=== PATIENT | female | born 1935 | race Caucasian/White ===

== ENCOUNTER 2016-10-19 12:02 | Emergency (ER) | payer MEDICARE, OTHER ==
[2016-10-19 12:59] VITALS: TEMP 97.1
--- NOTE | 2016-10-19 13:30 | RAD ---
EXAM DESCRIPTION: Chest,2 Views CLINICAL HISTORY: cough for 5 days COMPARISON: None FINDINGS: Two-view chest x-ray shows cardiomediastinal silhouette and pulmonary vasculature to be within normal limits. The lungs are hyperinflated without acute infiltrate or consolidation. Chronic appearing increased interstitial markings are noted. Moderate vascular calcifications of a tortuous thoracic aorta are seen. Costophrenic angles are sharp. Moderate disc degenerative changes of the spine are noted. IMPRESSION: No radiographic evidence of acute cardiopulmonary disease in this emphysematous, senescent chest. Electronically signed by: Darien Mclean MD 10/19/2016 1:30 PM EQUIPMENT ENGINEER
--- NOTE | 2016-10-19 13:43 | ED.PDOC ---
History of Present Illness - General Chief Complaint: Respiratory Problem Stated Complaint: Cough chest congestion and high blood sugar Time Seen by Provider: 10/19/16 13:42 Source: patient Exam Limitations: no limitations - History of Present Illness Timing/Duration: other - 7 days Severity: moderate Worsening Factors: nothing Associated Symptoms: cough Allergies/Adverse Reactions: Allergies Meperidine [From Demerol HCl] Allergy (Verified 10/19/16 12:59) Review of Systems - Review of Systems Constitutional: States: no symptoms reported EENTM: States: no symptoms reported Respiratory: States: see HPI, cough Cardiology: States: no symptoms reported Gastrointestinal/Abdominal: States: no symptoms reported Genitourinary: States: no symptoms reported Musculoskeletal: States: no symptoms reported Skin: States: no symptoms reported Neurological: States: no symptoms reported Endocrine: States: no symptoms reported Hematologic/Lymphatic: States: no symptoms reported Past Medical History (General) - Patient Medical History Hx Seizures: No Hx Stroke: No Hx Dementia: No Hx Asthma: No Hx of COPD: No Hx Cardiac Disorders: No Hx Congestive Heart Failure: No Hx Pacemaker: No Hx Hypertension: Yes Hx Thyroid Disease: Yes Hx Diabetes: Yes - Tyoe 1 Hx Gastroesophageal Reflux: No Hx Renal Disease: No Hx Cancer: No Hx of HIV: No Hx Hepatitis C: No Hx MRSA: No Surgical History: Hysterectomy - Vaccination History Hx Influenza Vaccination: Yes Hx Pneumococcal Vaccination: No - Social History Hx Tobacco Use: No Hx Alcohol Use: No Hx Substance Use: No Hx Substance Use Treatment: No Hx Depression: No - Triage Comment ED Triage Comment: Pt states she has had allergies and sinus problems for the past 5 days, with runny nose. The has now developed a cough that has settled in her chest. Also damendezther took her FSBS in waiting room and it reads [id number] Family Medical History - Family History Mother Family History: Unknown Living Status: Non Contributory this Encounter: Non Contributory for this Encounter - adopted Physical Exam - Physical Exam General Appearance: Alert, No apparent distress Eye Exam: bilateral normal Ears, Nose, Throat: hearing grossly normal, normal ENT inspection, normal pharynx Neck: non-tender, full range of motion, supple Respiratory: chest non-tender, lungs clear, normal breath sounds, no respiratory distress Cardiovascular/Chest: normal peripheral pulses, regular rate, rhythm, no edema, no gallop, no JVD Peripheral Pulses: radial,right: 2+, radial,left: 2+ Gastrointestinal/Abdominal: normal bowel sounds, non tender, soft, no organomegaly Back Exam: normal inspection, no CVA tenderness, no vertebral tenderness Extremity: normal range of motion, non-tender, normal inspection Neurologic: alert, normal mood/affect, oriented x 3 Skin Exam: normal color, warm/dry Progress - Results/Orders Results/Orders: Laboratory Results WBC 4.1 K/mm3 (4.8-10.8) L 10/19/16 13:00 RBC 3.74 M/mm3 (4.20-5.40) L 10/19/16 13:00 Hgb 11.7 gm/dL (12.0-16.0) L 10/19/16 13:00 Hct 35.7 % (36.0-47.0) L 10/19/16 13:00 MCV 95.3 fl (81.0-99.0) 10/19/16 13:00 MCH 31.2 pg (27.0-31.0) H 10/19/16 13:00 MCHC 32.9 g/dL (33.0-37.0) L 10/19/16 13:00 RDW 12.9 % (11.5-14.5) 10/19/16 13:00 Plt Count 220 K/mm3 (130-400) 10/19/16 13:00 MPV 7.7 fl (7.40-10.4) 10/19/16 13:00 Absolute Neuts (auto) 2.80 K/uL (1.8-6.8) 10/19/16 13:00 Absolute Lymphs (auto) 0.60 K/uL (1.0-3.4) L 10/19/16 13:00 Absolute Monos (auto) 0.40 K/uL (0.2-0.8) 10/19/16 13:00 Absolute Eos (auto) 0.20 K/uL (0.0-0.4) 10/19/16 13:00 Absolute Basos (auto) 0.10 K/uL (0.0-0.1) 10/19/16 13:00 Neutrophils % 67.8 % (42.0-78.0) 10/19/16 13:00 Lymphocytes % 14.7 % (20.0-50.0) L 10/19/16 13:00 Monocytes % 10.6 % (2.0-9.0) H 10/19/16 13:00 Eosinophils % 5.6 % (1.0-5.0) H 10/19/16 13:00 Basophils % 1.3 % (0.0-2.0) 10/19/16 13:00 Sodium 131 mmol/L (135-145) L 10/19/16 13:00 Potassium 4.7 mmol/L (3.6-5.0) 10/19/16 13:00 Chloride 94 mmol/L (101-111) L 10/19/16 13:00 Carbon Dioxide 28 mmol/L (21-31) 10/19/16 13:00 Anion Gap 13.7 (12-18) 10/19/16 13:00 BUN 24 mg/dL (7-18) H 10/19/16 13:00 Creatinine 0.99 mg/dL (0.6-1.3) 10/19/16 13:00 BUN/Creatinine Ratio 24.2 (10-20) H 10/19/16 13:00 POC Glucose > 400 mg/dL (70-105) H* 10/19/16 13:00 Random Glucose 493 mg/dL (70-105) H* 10/19/16 13:13 Serum Osmolality 288.6 mOsm/L (275-295) 10/19/16 13:00 Calcium 9.1 mg/dL (8.4-10.2) 10/19/16 13:00 Total Bilirubin 0.5 mg/dL (0.2-1.0) 10/19/16 13:00 AST 18 IU/L (10-42) 10/19/16 13:00 ALT 11 IU/L (10-60) 10/19/16 13:00 Alkaline Phosphatase 95 IU/L (42-121) 10/19/16 13:00 Serum Total Protein 7.8 gm/dL (6.4-8.2) 10/19/16 13:00 Albumin 3.9 g/dl (3.2-5.5) 10/19/16 13:00 Globulin 3.9 gm/dL (2.3-3.5) H 10/19/16 13:00 Albumin/Globulin Ratio 1.0 (1.1-1.9) L 10/19/16 13:00 Departure - Departure Disposition: Discharge to Home or Self Care Departure Forms: ED Discharge - Pt. Copy, Patient Portal Self Enrollment
[2016-10-19] MEDS ORDERED: INSULIN, REG.(HUMAN) 100 U/ML VIAL SUBCU ONE (14:26)
[2016-10-19 16:31] VITALS: BP 115/68; O2SAT 92
== END 2016-10-19 16:15 | disposition home or self-care (01) ==
LOC: ER 12:02
DX: J06.9 Acute upper respiratory infection, unspecified (principal); E10.65 Type 1 diabetes mellitus with hyperglycemia; I10 Essential (primary) hypertension; E07.9 Disorder of thyroid, unspecified; Z88.8 Allergy status to other drugs, medicaments and biological substances

== ENCOUNTER 2018-02-20 09:00 | Emergency (ER) | payer OTHER ==
[2018-02-20 09:12] VITALS: BP 112/59; TEMP 99.5; O2SAT 95
[2018-02-20] MEDS ORDERED: CLINDAMYCIN HCL CAP 150 MG CAP PO ONE (09:32)
[2018-02-20] MEDS ORDERED: ONDANSETRON ODT 8 MG TAB SL ONE (09:32)
[2018-02-20] MEDS ORDERED: cefTRIAXone SODIUM 1 GM VIAL IM ONE (09:32)
--- NOTE | 2018-02-20 09:35 | ED.PDOC ---
History of Present Illness - General Chief Complaint: Dental/Mouth Stated Complaint: right jaw pain Time Seen by Provider: 02/20/18 09:24 Source: patient Exam Limitations: no limitations - History of Present Illness Initial Comments: the patient is a 82-year-old female presenting to the emergency room secondary to what appears to be a dental infection and warm her upper right molars. She does have some swelling on that side of the face but no obvious abscess formation at this time. She has apparently thrown up twice. It does hurt. She is not having any fevers. No evidence of any sepsis. She is alert oriented and interactive. Timing/Duration: 24 hours Severity: moderate Improving Factors: nothing Worsening Factors: eating Associated Symptoms: denies symptoms Allergies/Adverse Reactions: Allergies Meperidine [From Demerol HCl] Allergy (Verified 10/19/16 12:59) Home Medications: Ambulatory Orders Benzonatate Perles [Tessalon Perles] 200 mg PO BID #30 cap 10/19/16 Chlorpheniramine Maleate [Chlor-Trimeton Allergy] 12 mg PO BID #30 tab 10/19/16 Abcpsbxusnhri-Rgah-Zpthvzemgg [Fioricet] 1 ea PO Q8H PRN #21 tab 02/20/18 Clindamycin HCl 300 mg PO Q8H #30 cap 02/20/18 Ondansetron [Zofran Odt] 4 mg PO Q4H PRN #10 tab 02/20/18 Review of Systems - Review of Systems Constitutional: States: no symptoms reported EENTM: States: see HPI Respiratory: States: no symptoms reported Cardiology: States: no symptoms reported Gastrointestinal/Abdominal: States: nausea, vomiting Genitourinary: States: no symptoms reported Musculoskeletal: States: no symptoms reported Skin: States: no symptoms reported Neurological: States: no symptoms reported Endocrine: States: no symptoms reported All other Systems: No Change from Baseline Past Medical History (General) - Patient Medical History Hx Seizures: No Hx Stroke: No Hx Dementia: No Hx Asthma: No Hx of COPD: No Hx Cardiac Disorders: No Hx Congestive Heart Failure: No Hx Pacemaker: No Hx Hypertension: Yes Hx Thyroid Disease: Yes Hx Diabetes: Yes - Tyoe 1 Hx Gastroesophageal Reflux: No Hx Renal Disease: No Hx Cancer: No Hx of HIV: No Hx Hepatitis C: No Hx MRSA: No - Vaccination History Hx Influenza Vaccination: Yes Hx Pneumococcal Vaccination: No - Social History Hx Tobacco Use: No Hx Alcohol Use: No Hx Substance Use: No Hx Substance Use Treatment: No Hx Depression: No Family Medical History - Family History Mother Family History: Unknown Living Status: Physical Exam - Physical Exam General Appearance: Alert, Comfortable, No apparent distress Eye Exam: bilateral normal Ears, Nose, Throat: hearing grossly normal, normal pharynx Neck: full range of motion, supple Respiratory: lungs clear, normal breath sounds, no respiratory distress, no accessory muscle use Cardiovascular/Chest: normal peripheral pulses, regular rate, rhythm, no edema Peripheral Pulses: radial,right: 2+, radial,left: 2+, dorsalis pedis,right: 2+, dorsalis pedis,left: 2+ Gastrointestinal/Abdominal: non tender, soft Rectal Exam: deferred Extremity: no pedal edema, no calf tenderness, normal capillary refill 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 Comments: Vital Signs - 24 hr 02/20/18 09:01 Temperature 99.5 F Pulse Rate [ 105 H Left Brachial] Respiratory 20 Rate Blood Pressure 112/59 [Left Arm] O2 Sat by Pulse 95 Oximetry Progress - Progress Progress: 02/20/18 09:36 the patient is a 82-year-old female presenting with a right upper dental infection giving some swelling to that side of the face. The patient needs to keep herself well hydrated. She needs to take her clindamycin with food. She'll be written for some Zofran for any nausea to take as needed. She' ll also be written for some Fioricet to take as needed. She did receive 1 dose of Rocephin here. If the problem worsens obviously over the next 48 hours rather than improves, then she may or more aggressive therapy however there is no obvious abscess formed at this time and no evidence of sepsis. she does need to monitor her blood sugars closely. She does need to follow back up with her primary care doctor in a couple of days for reevaluation just to be safe given her brittle medical status and general. ER warnings were given. Departure - Departure Clinical Impression: Infected dental caries Disposition: Discharge to Home or Self Care Condition: Good Departure Forms: ED Discharge - Pt. Copy, Patient Portal Self Enrollment Diet: diabetic diet Activity: increase activity as tolerated Referrals: KRISTEN ST [Primary Care Provider] - 1-2 Days Prescriptions: Lkjlmqacmqzjq-Poip-Ssxxgmiqor [Fioricet] 1 ea PO Q8H PRN #21 tab PRN Reason: Pain Clindamycin HCl 300 mg PO Q8H #30 cap Ondansetron [Zofran Odt] 4 mg PO Q4H PRN #10 tab PRN Reason: Vomiting Home Medications: Ambulatory Orders Benzonatate Perles [Tessalon Perles] 200 mg PO BID #30 cap 10/19/16 Chlorpheniramine Maleate [Chlor-Trimeton Allergy] 12 mg PO BID #30 tab 10/19/16 Ilfzgkazdebjk-Dztz-Mixgtfarbt [Fioricet] 1 ea PO Q8H PRN #21 tab 02/20/18 Clindamycin HCl 300 mg PO Q8H #30 cap 02/20/18 Ondansetron [Zofran Odt] 4 mg PO Q4H PRN #10 tab 02/20/18 Additional Instructions: the patient is a 82-year-old female presenting with a right upper dental infection giving some swelling to that side of the face. The patient needs to keep herself well hydrated. She needs to take her clindamycin with food. She'll be written for some Zofran for any nausea to take as needed. She' ll also be written for some Fioricet to take as needed. She did receive 1 dose of Rocephin here. If the problem worsens obviously over the next 48 hours rather than improves, then she may or more aggressive therapy however there is no obvious abscess formed at this time and no evidence of sepsis. she does need to monitor her blood sugars closely. She does need to follow back up with her primary care doctor in a couple of days for reevaluation just to be safe given her brittle medical status and general. ER warnings were given.
== END 2018-02-20 10:20 | disposition home or self-care (01) ==
LOC: ER 09:00
DX: K02.9 Dental caries, unspecified (principal)

== ENCOUNTER 2018-02-22 14:03 | Emergency (ER) | payer OTHER ==
[2018-02-22] MEDS ORDERED: INSULIN, REG.(HUMAN) 100 U/ML VIAL IV ONE (14:10)
[2018-02-22] MEDS ORDERED: ALUMINUM & MAGNESIUM HYDROXIDE 30 ML UD PO ONE (14:10)
--- NOTE | 2018-02-22 14:39 | RAD ---
EXAM DESCRIPTION: Abdomen Series CLINICAL HISTORY: 82 years Female, n/v COMPARISON: None. FINDINGS: Chest x-ray shows normal-sized heart. Tortuous aorta is seen. Normal pulmonary vascularity. No consolidating infiltrate, mass or pleural effusion. Upright view the abdomen shows no abnormal air-fluid levels. No free air under the diaphragm. Supine view the abdomen shows moderate amount of fecal material in the rectal region. Otherwise the colon appears essentially clear. Phleboliths are seen in the left more than right pelvis. Degenerative dextroscoliotic curvature of the L-spine is seen. Pelvis appears intact. IMPRESSION: No acute process. Electronically signed by: Mariano Joy MD 02/22/2018 2:37 PM CDT
[2018-02-22] MEDS ORDERED: PROMETHAZINE HCL INJ 25 MG in SODIUM CHLORIDE 0.9% 50ML 50 ML IVPB ONE (14:42)
[2018-02-22] MEDS ORDERED: SODIUM CHLORIDE 0.9% 1000ML 1,000 ML IVS ONE (14:43)
[2018-02-22 14:44] VITALS: TEMP 98
[2018-02-22] MEDS ORDERED: ONDANSETRON INJ 4 MG/2 ML VIAL IV ONE (14:44)
[2018-02-22] MEDS ORDERED: PROMETHAZINE HCL INJ 25 MG/ML VIAL ONE (14:49)
[2018-02-22] MEDS ORDERED: SODIUM CHLORIDE 0.9% 50ML 50 ML ONE (14:49)
[2018-02-22 15:18] VITALS: O2SAT 98
[2018-02-22] MEDS ORDERED: INSULIN, REG.(HUMAN) 250 UNITS in SODIUM CHL 0.9% 250ML (AVIVA) 247.5 ML IVPB SCH ×2 (15:32)
[2018-02-22] MEDS ORDERED: cefTRIAXone SODIUM 1 GM in SODIUM CHL 0.9% 50ML MIN-BAG+ 50 ML IVPB ONE (15:35)
[2018-02-22] MEDS ORDERED: SODIUM CHL 0.9% 250ML (AVIVA) 0 ML IVPB ONE (15:40)
[2018-02-22] MEDS ORDERED: INSULIN, REG.(HUMAN) 100 U/ML VIAL ONE (15:40)
[2018-02-22] MEDS ORDERED: cefTRIAXone SODIUM 1 GM VIAL ONE (15:40)
[2018-02-22] MEDS ORDERED: SODIUM CHL 0.9% 50ML MIN-BAG+ 50 ML IVPB ONE (15:40)
--- NOTE | 2018-02-22 16:08 | ED.PDOC ---
History of Present Illness - General Chief Complaint: GI Problem Stated Complaint: vomiting x2 days Time Seen by Provider: 02/22/18 14:07 Source: patient, family Exam Limitations: no limitations - History of Present Illness Initial Comments: the patient is an 82-year-old female presenting to the emergency room with her daughter secondary to nausea and vomiting for the last 2448 hrs. The patient was seen here before that for a dental root infection and was placed on clindamycin. The next day after starting the clindamycin she started throwing up. Since she was throwing up she figures she apparently did not need to take any of her insulin. She did not check her blood sugars. She has continued to throw up this morning and was getting weaker so she should appear. The emergency room. She is alert and oriented. The facial swelling to the right side of the face that was seen earlier in the week has essentially dissipated. Blood sugar check with EMS was too high to be determined. Blood sugar here was 640. Again the patient is alert and oriented. She is not short of breath. No chest pain. No evidence of any cardiac instability at this time. Her and her daughter do not know of any chronic lung or heart problems. Timing/Duration: other - 48 hours Severity: severe Improving Factors: nothing Worsening Factors: nothing Associated Symptoms: loss of appetite, malaise, nausea/vomiting, weakness Allergies/Adverse Reactions: Allergies Meperidine [From Demerol HCl] Allergy (Verified 10/19/16 12:59) Home Medications: Ambulatory Orders Benzonatate Perles [Tessalon Perles] 200 mg PO BID #30 cap 10/19/16 Chlorpheniramine Maleate [Chlor-Trimeton Allergy] 12 mg PO BID #30 tab 10/19/16 Lexdzocnizror-Syij-Dsdnhtiwcw [Fioricet] 1 ea PO Q8H PRN #21 tab 02/20/18 Clindamycin HCl 300 mg PO Q8H #30 cap 02/20/18 Ondansetron [Zofran Odt] 4 mg PO Q4H PRN #10 tab 02/20/18 Review of Systems - Review of Systems Constitutional: States: malaise, weakness EENTM: States: see HPI Respiratory: States: no symptoms reported Cardiology: States: no symptoms reported Gastrointestinal/Abdominal: States: abdominal pain - abdominal cramping, nausea , vomiting Genitourinary: States: no symptoms reported Musculoskeletal: States: other - generalized body aches Skin: States: no symptoms reported Neurological: States: no symptoms reported Endocrine: States: no symptoms reported, increased thirst All other Systems: No Change from Baseline Past Medical History (General) - Patient Medical History Hx Seizures: No Hx Stroke: No Hx Dementia: No Hx Asthma: No Hx of COPD: No Hx Cardiac Disorders: No Hx Congestive Heart Failure: No Hx Pacemaker: No Hx Hypertension: Yes Hx Thyroid Disease: Yes Hx Diabetes: Yes Hx Gastroesophageal Reflux: No Hx Renal Disease: No Hx Cancer: No Hx of HIV: No Hx Hepatitis C: No Hx MRSA: No - Vaccination History Hx Influenza Vaccination: Yes Hx Pneumococcal Vaccination: No - Social History Hx Tobacco Use: No Hx Alcohol Use: No Hx Substance Use: No Hx Substance Use Treatment: No Hx Depression: No Family Medical History - Family History Mother Family History: Unknown Living Status: Physical Exam - Physical Exam General Appearance: Alert, Other - vomiting Eye Exam: bilateral normal Ears, Nose, Throat: hearing grossly normal, other - there is still some mild swelling to the right upper gum. Still very mild persistent facial swelling to the right. Significantly improved from earlier in the week. 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 PH was 7.11. As I am writing this the patient has received at least a liter and a half of IV fluids. She has received at least 8 units of IV insulin and has been started on 0.1 units per kilogram per hour of IV insulin. Potassium is moderately elevated upon initiation but will need to be followed. Anion gap is in the mid 30s when sodium is corrected for glucose. The patient is alert and oriented and appears to be hemodynamically stable. I do anticipate the patient will take around 48 hours to correct and stabilize. her noncompliance will need to be addressed. She did receive a dose of IV Rocephin here as she is obviously not able to hold down the oral clindamycin at this time. She did also receive a dose of Zofran and Phenergan for the nausea and vomiting which appears to be working. She does have a history of hypothyroidism and this will also need to be checked in the near future. A blood culture has been performed here. Critical care time spent in management of DKA and mixed metabolic acidosis is 40 minutes including time for discussion with the family on the patient's plan of care as well as with the receiving facility. Transfer for higher level of care. - Results/Orders Results/Orders: blood cultures being done. EKG shows sinus tachycardia with right bundle branch block. Rate is [address] definitive acute ST segment changes concerning for ischemia. Acute abdominal series films show any definitive acute pathology. No obstruction. No free air. Laboratory Tests 02/22/18 02/22/18 02/22/18 13:51 13:51 15:05 WBC 11.2 H RBC 3.37 L Hgb 10.6 L Hct 33.0 L MCV 98.0 MCH 31.4 H MCHC 32.1 L RDW 12.8 Plt Count 348 MPV 8.4 Absolute Neuts (auto) 10.40 H Absolute Lymphs (auto) 0.30 L Absolute Monos (auto) 0.40 Absolute Eos (auto) 0.00 Absolute Basos (auto) 0.10 Neutrophils % 93.1 H Lymphocytes % 3.0 L Monocytes % 3.2 Eosinophils % 0.0 L Basophils % 0.7 pCO2 30 L pO2 106 HCO3 9.1 ABG pH 7.110 L* ABG O2 Saturation 97.3 ABG Base Excess -19.0 ABG Deoxyhemoglobin 2.7 Oxyhemoglobin % 94.6 Carboxyhemoglobin % 0.5 Methemoglobin % Sat 2.2 H Calc Total Hemoglobin 8.9 L Sodium 134 L Potassium 5.4 H Chloride 94 L Carbon Dioxide 14 L* Anion Gap 31.4 H BUN 45 H Creatinine 1.45 H BUN/Creatinine Ratio 31.0 H Random Glucose 641 H* Serum Osmolality 309.9 H Calcium 10.1 Magnesium 2.5 Total Bilirubin 1.8 H AST 16 ALT 15 Alkaline Phosphatase 111 Creatine Kinase 25 L CK-MB (CK-2) 1.3 CK-MB (CK-2) % 5.20 H Troponin I < 0.02 Serum Total Protein 8.4 H Albumin 4.1 Globulin 4.3 H Albumin/Globulin Ratio 1.0 L Amylase 39 Lipase 15 L Departure - Departure Clinical Impression: Metabolic acidosis DKA (diabetic ketoacidoses) Qualifiers: Diabetes mellitus type: other specified (including [place]) Diabetes mellitus complication detail: without coma Qualified Code(s): E13.10 - Other specified diabetes mellitus with ketoacidosis without coma Vomiting Qualifiers: Vomiting type: unspecified Vomiting Intractability: non-intractable Nausea presence: with nausea Qualified Code(s): R11.2 - Nausea with vomiting, unspecified Disposition: Transfer to Hospital Referrals: [facility] ST [Primary Care Provider] - 1-2 Weeks Home Medications: Ambulatory Orders Benzonatate Perles [Tessalon Perles] 200 mg PO BID #30 cap 10/19/16 Chlorpheniramine Maleate [Chlor-Trimeton Allergy] 12 mg PO BID #30 tab 10/19/16 Vtugkcmzompcf-Lsaz-Crsrzmofnr [Fioricet] 1 ea PO Q8H PRN #21 tab 02/20/18 Clindamycin HCl 300 mg PO Q8H #30 cap 02/20/18 Ondansetron [Zofran Odt] 4 mg PO Q4H PRN #10 tab 02/20/18 Transfer to Outside Facility - Transfer Information Accepting Provider:: dr leonardo/dr maloney Accepting Facility: [facility] Reason for Transfer: ICU
[2018-02-22] MEDS ORDERED: SODIUM CHL 0.9% 250ML (AVIVA) 250 ML IVPB ONE (16:25)
[2018-02-22 17:41] VITALS: BP 124/53
== END 2018-02-22 16:20 | disposition short-term general hospital (02) ==
LOC: ER 14:03
DX: E11.10 Type 2 diabetes mellitus with ketoacidosis without coma (principal); I10 Essential (primary) hypertension; E07.9 Disorder of thyroid, unspecified; R00.0 Tachycardia, unspecified; I45.10 Unspecified right bundle-branch block

== ENCOUNTER → 2018-04-14 | Outpatient (CLI) | payer OTHER ==
--- NOTE | 2018-04-14 11:10 | RAD ---
EXAM DESCRIPTION: Shoulder,Left 2 or More Views CLINICAL HISTORY: 83 years Female, FX OF HUMERUS COMPARISON: Radiographs dated 04/05/2018. FINDINGS: The visualized bones are well-mineralized. Old fracture of the proximal left humerus is again identified. The soft tissues appear grossly unremarkable. IMPRESSION: Stable appearance of the proximal fracture of the left humerus compared to 04/05/2018. Electronically signed by: Laura Fan MD 04/14/2018 11:09 AM CDT
== END ==
LOC: RAD 09:28
PROVIDERS: ATTEND Orthopaedic Surgery
DX: S42.202D Unspecified fracture of upper end of left humerus, subsequent encounter for fracture with routine healing (principal)

== ENCOUNTER → 2018-05-15 | Outpatient (CLI) | payer OTHER ==
--- NOTE | 2018-05-15 09:39 | RAD ---
EXAM DESCRIPTION: Shoulder,Left 2 or More Views CLINICAL HISTORY: 83 years Female, FRACTURE OF LEFT HUMERUS COMPARISON: April 14, 2018 FINDINGS: Again seen is an impacted left humeral neck fracture with slight displacement. There is some callus formation at the fracture site which appears increased from the prior study, the fracture remains at least partially nonunited. No acute fracture or malalignment. The left AC joint is unremarkable. IMPRESSION: Impacted left humeral neck fracture, probably partially united. Slight interval increase in amount of callus formation from November 12, 2017. Electronically signed by: Evan Zurita MD 05/15/2018 9:37 AM CDT
== END ==
LOC: RAD 08:15
PROVIDERS: ATTEND Orthopaedic Surgery
DX: S42.202A Unspecified fracture of upper end of left humerus, initial encounter for closed fracture (principal)

== ENCOUNTER 2018-06-10 12:32 | Inpatient (IN) | payer OTHER ==
--- NOTE | 2018-06-10 12:45 | ED.PDOC ---
History of Present Illness - General Chief Complaint: Diabetic Complaint Time Seen by Provider: 06/10/18 12:39 Source: patient Exam Limitations: no limitations - History of Present Illness Initial Comments: ONSET OF N/V THIS AM. WAS BROUGHT IN FOR EVALUATION OF POSSIBLE DIABETIC COMPLICATIONS. BS THIS AM 499 Timing/Duration: other - SINCE THIS AM Severity: moderate Improving Factors: nothing Worsening Factors: nothing Associated Symptoms: denies symptoms Allergies/Adverse Reactions: Allergies Meperidine [From Demerol HCl] Allergy (Verified 10/19/16 12:59) Home Medications: Ambulatory Orders Levothyroxine Sodium [Synthroid] 100 mcg PO DAILY 06/10/18 Review of Systems - Review of Systems Constitutional: Denies: chills, fever EENTM: States: no symptoms reported Respiratory: Denies: cough, short of breath, wheezing Cardiology: Denies: chest pain, palpitations Gastrointestinal/Abdominal: States: nausea, vomiting. Denies: abdominal pain, diarrhea Genitourinary: Denies: dysuria, frequency, hematuria Musculoskeletal: States: no symptoms reported Skin: States: no symptoms reported Neurological: States: no symptoms reported Endocrine: Denies: excessive sweating, intolerance to cold, intolerance to heat , increased thirst, increased urine Hematologic/Lymphatic: States: no symptoms reported Past Medical History (General) - Patient Medical History Hx Seizures: No Hx Stroke: No Hx Dementia: No Hx Asthma: No Hx of COPD: No Hx Cardiac Disorders: No Hx Congestive Heart Failure: No Hx Pacemaker: No Hx Hypertension: No Hx Thyroid Disease: Yes Hx Diabetes: Yes Hx Gastroesophageal Reflux: No Hx Renal Disease: No Hx Cancer: No Hx of HIV: No Hx Hepatitis C: No Hx MRSA: No - Vaccination History Hx Tetanus, Diphtheria Vaccination: No Hx Influenza Vaccination: No Hx Pneumococcal Vaccination: No - Social History Hx Tobacco Use: No Hx Chewing Tobacco Use: No Hx Alcohol Use: No Hx Substance Use: No Hx Substance Use Treatment: No Hx Depression: No Hx Physical Abuse: No Hx Emotional Abuse: No Hx Suspected Abuse: No - Female History Patient : No Family Medical History - Family History Mother Family History: Unknown Living Status: Physical Exam - Physical Exam General Appearance: Alert, Frail, No apparent distress Eye Exam: bilateral normal Ears, Nose, Throat: hearing grossly normal, other - MOIST MM Neck: non-tender, full range of motion, supple Respiratory: lungs clear, normal breath sounds Cardiovascular/Chest: regular rate, rhythm, no murmur Gastrointestinal/Abdominal: non tender, soft, no organomegaly Back Exam: normal inspection, no CVA tenderness, no vertebral tenderness Extremity: normal range of motion, non-tender Neurologic: alert, oriented x 3 Skin Exam: normal color Lymphatic: no adenopathy Progress - Progress Progress: 06/10/18 15:39 DOING BETTER. INITIALLY D/W JENNI WHO RECOMMENDED TRANSFER TO [facility]. PT HOWEVER LOOKS MUCH BETTER. REPEAT ABG AND FSBS SHOWS IMPROVEMENT. D /W JENNI AGAIN. WILL CONTACT DR MERCADO AND CALL BACK. 06/10/18 16:32 D/W JENNI WILL ADMIT - EKG/XRAY/CT EKG: Sinus - NL AXIS, NL INTERVALS, , RBBB - NAIP, , nonspecific ST T wave Chg, Unchanged from - 02/22/18 Departure - Departure Clinical Impression: Dehydration, Diabetes 1.5, managed as type 2 DKA (diabetic ketoacidoses) Qualifiers: Diabetes mellitus type: type 2 Diabetes mellitus complication detail: without coma Qualified Code(s): E11.10 - Type 2 diabetes mellitus with ketoacidosis without coma Time of Disposition: 16:34 Disposition: Admit Patient Condition: Fair Departure Forms: ED Discharge - Pt. Copy, Patient Portal Self Enrollment Instructions: DI for Diabetes Type 2 Referrals: Anais Ware DO [Primary Care Provider] - 1-2 Weeks Home Medications: Ambulatory Orders Levothyroxine Sodium [Synthroid] 100 mcg PO DAILY 06/10/18
[2018-06-10] MEDS ORDERED: PROMETHAZINE HCL INJ 25 MG/ML VIAL ONE ×2 (13:52→14:05)
[2018-06-10] MEDS ORDERED: PROMETHAZINE HCL INJ 6.25 MG in SODIUM CHLORIDE 0.9% 50ML 50 ML IVPB ONE (13:54)
[2018-06-10] MEDS ORDERED: SODIUM CHLORIDE 0.9% 1000ML 1,000 ML IVS PRN ×3 (14:00→16:58)
[2018-06-10] MEDS ORDERED: SODIUM CHLORIDE 0.9% 50ML 50 ML ONE (14:06)
--- NOTE | 2018-06-10 16:12 | RAD ---
EXAM DESCRIPTION: Chest,1 View CLINICAL HISTORY: 83 years Female, DKA COMPARISON: 2 view chest dated October 19, 2016. FINDINGS: The film is reverse lordotic in projection, and there is slight patient rotation to the left. Heart size is felt to be within normal limits. There is atherosclerotic change in the thoracic aorta. Pulmonary vascular markings appear slightly accentuated compared to the previous study, but this may be related to technical and positional and projectional differences. The lungs appear otherwise clear. No evidence of alveolar pulmonary edema. IMPRESSION: Mild pulmonary vascular prominence, of questionable significance. Otherwise, no evidence of acute cardiopulmonary disease. Electronically signed by: Kip Herzog MD 06/10/2018 4:11 PM CDT
--- NOTE | 2018-06-10 16:35 | HP ---
SUPERVISING PHYSICIAN: Gino Galloway M.D. CHIEF COMPLAINT: Elevated blood sugar. HISTORY OF PRESENT ILLNESS: Ms. Mcleod is an 83 year-old male patient that is a type 2 diabetic that is on insulin. Today, she presented to the E. R. with some nausea and vomiting and elevated blood sugar that was noted to be at 499 this morning. She says that she started having this past some nausea and decreased appetite but had no significant diarrhea, just dry heaves. She has had 1 previous episode of diabetic ketoacidosis this past February. In the E. R. today, laboratory studies showed that her blood sugar was 512. Blood gas initially showed a pH of 7.190 with a base excess of -14.7 and bicarb 12.1. She was initiated on DKA treatment protocol and after 2 liters of fluid her blood sugar had corrected to 301 and repeat blood gas analysis showed her pH had gone up to 7.26. Dr. Zurita, . . physician, requested the patient be admitted for management of DKA. The patient is now going to be admitted to the Medical/Surgical floor for ongoing treatment of DKA. The patient is in stable condition at time of admission. PAST MEDICAL HISTORY: 1. Recent fracture of her left shoulder and humerus on . 2. Diabetes mellitus type 2 on insulin with 1 episode of DKA this past February. 3. Hypothyroidism. 4. Hypotension. PAST SURGICAL HISTORY: 1. Hysterectomy. 2. Cataract removal. HOME MEDICATIONS: 1. Pravastatin 20 mg daily. 2. Synthroid 100 mcg daily. 3. NovoLog sliding scale. 4. Insulin Glargine 10 units daily. 5. Losartan 50 mg daily. ALLERGIES: CODEINE AND MEPERIDINE. FAMILY HISTORY: The patient is adopted. SOCIAL HISTORY: The patient works as a sitter. She has never drank alcohol or smoked tobacco. She lives in [place] with her daughter and is . REVIEW OF SYSTEMS: CONSTITUTIONAL: Noticed some chills and fever. HEENT: No reported headaches, vision changes, sore throat, nasal congestion or ear aches. RESPIRATORY: Denies any coughing, shortness of breath or wheezing. CARDIOVASCULAR: Denies any chest pains, palpitations or syncopal episodes. GASTROINTESTINAL: As noted in history of present illness, nausea and vomiting. Denies any abdominal pains or diarrhea or constipation. GENITOURINARY: Denies any dysuria, hematuria or increased frequency or other urinary symptoms. MUSCULOSKELETAL: Notes that her right leg has been swelling somewhat compared to her left but reports no significant pain, and this has been present since she broke her arm in March. NEUROLOGIC: Denies any ataxia, seizures, headaches, vision changes, syncopal episodes. ENDOCRINE: Denies any excessive sweating, intolerance to cold or heat, increased thirst, but does note increased urine output and frequency. PHYSICAL EXAMINATION: VITAL SIGNS: Temperature on admission was 97.8, pulse 114, blood pressure 135/ 56, respirations 16, satting 97% on room air. Admission weight was 66.7 kg. GENERAL: The patient appears to be comfortable in no acute distress. She is alert. Does look frail and somewhat dehydrated. HEENT: Tympanic membranes are clear bilaterally. Oropharynx was pink with dry mucosal membranes and a dry tongue with no lesions. NECK: Supple, non-tender with full range of motion. No jugular venous distention. CHEST: Lungs are clear to auscultation without any rhonchi, wheezing or rales. CARDIOVASCULAR: Regular rate and rhythm without appreciable murmurs, gallops, or rubs. ABDOMEN: Non-tender, soft with no rebound tenderness. Positive bowel sounds. EXTREMITIES: Showing some 1+ pitting edema to the right lower extremity compared to the left with distal pulses being 1+ bilaterally. She moves all extremities ad erik. NEUROLOGIC: She is alert and oriented times three. Cranial nerves II-XII are grossly intact. Facial features were symmetrical. Extraocular movements are within normal limits. There is no notable nystagmus. LABORATORY: CBC on admission showed white count 10,900 with hemoglobin 10.7, hematocrit 33.8, platelet count 377,000. Differential did show a left shift. Blood gas analysis initially showed pH of 7.190. After initiation of fluids and insulin, pH had gone up to 7.26, pCO2s were both within normal limits at 34 , pO2 was showing 72 and bicarb was showing 12.1 initially and after repeat at 14.9. She was satting 94% with base excess initially of -14.7 and after initiation of treatment it was -10.8. Chemistries initially showed sodium 133 with blood sugar 512. Corrected sodium was approximately 141 and potassium 4.9 , carbon dioxide was low at 12, anion gap of 28.9, BUN 29, creatinine 1.29. Liver functions showed a slightly elevated bilirubin at 1.6. AST and ALT were both normal. Amylase and lipase are normal. Urinalysis showed 500 glucose, greater than 160 of ketones, otherwise within normal limits. Toxicology initially on admission shows small amount of ketones. RADIOLOGY: Chest x-ray in the E. R. per radiology interpretation showed mild pulmonary vascular prominence of questionable significance, otherwise no evidence of acute cardiopulmonary disease. ASSESSMENT: 1. Diabetic ketoacidosis in a type 2 diabetic with insulin requirements. 2. Nausea and vomiting contributing to #1, uncertain etiology. Possible acute viral gastroenteritis. 3. History of recent fracture of the left humerus and shoulder, a nonsurgical candidate with the injury happening 03/30/[address] Powers. 4. Right lower extremity edema with concerns for possible deep venous thrombosis. 5. Hypothyroidism on supplementation. 6. Hypertension well controlled. PLAN: The patient is going to be admitted to the Medical/Surgical floor for ongoing treatment of diabetic ketoacidosis. I have initiated DKA protocol with insulin drip. She was given 2 liters of fluid. Will follow this up with continued fluids as needed. Have also requested a Galvin as she has been a little incontinent, to further monitor her I's and O's. On the lower extremity edema, will get an ultrasound this coming Tuesday. Until then, given her risk factors for age, recent fall and trauma within the last 6 months, ongoing healing process and relatively being immobile for the last 4 or 5 days, will start her on Lovenox 60 mg per kg daily given her body mass index is at 23. She will have Zofran for nausea and Phenergan as needed. I will go ahead and give her a dose of Reglan to see if this will help decrease her nausea times 1 dose as well as start her on GI prophylaxis with Protonix as she is going to be NPO until she resolves the DKA and can transition to subcue insulin and start on a diet. She will be closely monitored cardiac malone while on DKA protocol. Until she is showing clinical stability and can transition to subcue insulin and diet, will anticipate length of stay to be at least 2 to 3 days. Until the patient is clinically stable, will continue to monitor and treat as needed. #[id number] [facility]
[2018-06-10] MEDS ORDERED: ONDANSETRON INJ 4 MG/2 ML VIAL IV PRN (16:58)
[2018-06-10] MEDS ORDERED: ACETAMINOPHEN SUPPOSITORY 650 MG PR PRN (16:58)
[2018-06-10] MEDS ORDERED: SODIUM CHLORIDE 0.9% (FLUSH) 10 ML SYG IV PRN (16:58)
[2018-06-10] MEDS ORDERED: IV SET AND CAP CHANGE INJ INJ SCH (17:00)
[2018-06-10] MEDS ORDERED: INSULIN, REG.(HUMAN) 250 UNITS in SODIUM CHL 0.9% 250ML (AVIVA) 247.5 ML IVPB SCH ×2 (17:05)
[2018-06-10] MEDS ORDERED: SODIUM CHL 0.9% 250ML (AVIVA) 250 ML IVPB ONE (17:34)
[2018-06-10] MEDS ORDERED: INSULIN, REG.(HUMAN) 100 U/ML VIAL ONE (17:35)
[2018-06-10] MEDS: INSULIN, REG.(HUMAN) 250 UNITS in SODIUM CHL 0.9% 250ML (AVIVA) 247.5 ML IVPB SCH ×2 (17:41)
[2018-06-10] MEDS ORDERED: KCL 20MEQ/D5 1/2NS 1,000 ML IVS PRN (17:56)
[2018-06-10] MEDS ORDERED: MAGNESIUM SULFATE PREMIX 2GM 2 GM in PREMIX BAG 1 BAG IVPB ONE (17:56)
[2018-06-10] MEDS ORDERED: METOCLOPRAMIDE HCL INJ 10 MG/2 ML VIAL IV ONE (17:56)
[2018-06-10] MEDS ORDERED: MAGNESIUM SULFATE PREMIX 2GM 50 ML IVPB ONE (17:59)
[2018-06-10] MEDS ORDERED: KCL 20MEQ/0.45% NS 1,000 ML IVS ONE (18:37)
[2018-06-10] MEDS ORDERED: KCL 20MEQ/0.45% NS 1,000 ML IVS PRN (18:38)
[2018-06-10] MEDS ORDERED: ENOXAPARIN SODIUM 60 MG/0.6 ML SYG SUBCU ONE (19:25)
[2018-06-10] MEDS ORDERED: PANTOPRAZOLE SODIUM IV 40 MG VIAL IV SCH (19:30)
[2018-06-11] MEDS ORDERED: SODIUM CHL 0.9% 250ML (AVIVA) 250 ML IVPB ONE (05:13)
[2018-06-11] MEDS ORDERED: INSULIN, REG.(HUMAN) 100 U/ML VIAL ONE (05:13)
[2018-06-11] MEDS: INSULIN, REG.(HUMAN) 250 UNITS in SODIUM CHL 0.9% 250ML (AVIVA) 247.5 ML IVPB SCH ×2 (05:17)
[2018-06-11] MEDS ORDERED: INSULIN LISPRO 100 UNITS/ML PEN SUBCU ONE ×2 (09:04→09:51)
[2018-06-11] MEDS ORDERED: INSULIN DETEMIR 100 UNITS/ML PEN SUBCU ONE ×3 (09:04→21:27)
[2018-06-11] MEDS: KCL 20MEQ/0.45% NS 1,000 ML IVS PRN ×3 (09:23→23:35)
[2018-06-11] MEDS ORDERED: GLUCAGON INJ 1 MG VIAL SUBCU PRN (12:07)
[2018-06-11] MEDS ORDERED: DEXTROSE 50% 25 GM/50 ML SYG IV PRN (12:07)
[2018-06-11] MEDS ORDERED: METOCLOPRAMIDE HCL INJ 10 MG/2 ML VIAL IV ONE (12:08)
[2018-06-11] MEDS: SIMETHICONE 80 MG TAB PO PRN ×2 (12:40→17:13)
--- NOTE | 2018-06-11 15:20 | PN ---
SUPERVISING PHYSICIAN: Gino Galloway MD DATE: 06/11/18 SUBJECTIVE: The patient has been on DKA protocol insulin drip through the night. She did finally normalize her anion gap and has resolved her DKA state and is attempting to transition to p.o. medications so we can start her on subcu insulin and get her off the drip. She still has a little bit of nausea, we have been trying some Reglan to see if maybe she may have a gastroparesis. She has had no abdominal pain and no other complaints and notes that she actually feels a little bit better than she did on admission. The patient was showing low volume output and required a Galvin placement for close I&Os and had no complication. OBJECTIVE: VITAL SIGNS: Temperature 98.8, pulse 87, blood pressure 127/69, respirations 16 , saturation 98% on room air. I&O: Positive balance of 1319, weight 66.7 kg. GENERAL: The patient this morning is much more alert, very pleasant. CHEST: Lungs clear to auscultation bilaterally. HEART: Regular rate and rhythm. ABDOMEN: Soft, non-tender with positive bowel sounds. EXTREMITIES: Right leg still shows to be larger than the left but not a significant increase since admission. Pulses distally are 1+, NEUROLOGICAL: Alert and oriented x3. LABORATORY: Electrolytes have now normalized with potassium 4.0, sodium 136. Blood sugars have been ranging between 110 and 160. Creatinine 0.7, calcium 9.0. Serum ketones are now showing to be negative. RADIOLOGY: No additional radiographic studies this morning. ASSESSMENT: 1. Hyperglycemic state complicated by diabetic ketoacidosis in a type 2 diabetic with insulin requirements showing improvement with treatment of DKA protocol, now transitioning into subcu insulin and diet. 2. Nausea and vomiting contributing to #1, uncertain etiology, probably either dome degree of recent viral gastroenteritis versus possible gastroparesis. 3. History of recent fracture of the left humerus and shoulder, a nonsurgical candidate with the injury happening 03/30/[address] Powers in outpatient setting. 4. Right lower extremity edema with concerns for possible deep venous thrombosis, awaiting results of D-dimer and ultrasound with Lovenox 1mg/kg for treatment of possible DVT. 5. Hypothyroidism on supplementation. 6. Hypertension but well controlled. PLAN: Will continue with plan of care at this point and keep the patient off insulin drip and transition to subcu insulin.as she is now showing to be without any ketones and is starting to take oral diet. Will continue with Lovenox, await ultrasound Tuesday to further evaluate the right lower leg. Will anticipate at least another 24 to 48 hours hospitalization as the patient is showing slow clinical stabilization, although she is no longing in a DKA state. Should she continue to have a significant amount of nausea and vomiting, certainly will need to probably address with further diagnostic studies to include possible CT of the abdomen. Will continue with Reglan p.r.n. as needed given the consideration for possible gastroparesis. She remains on Protonix prophylaxis and has been transitioned to an 1800 calorie diet and ACHF slightly scale once insulin is stopped. Until the patient can transition to outpatient management, will continue to monitor and treat as needed. #[id number] [facility]
[2018-06-11] MEDS: INSULIN LISPRO 100 UNITS/ML PEN SUBCU SCH ×2 (16:49→21:16)
[2018-06-11] MEDS ORDERED: ENOXAPARIN SODIUM 60 MG/0.6 ML SYG SUBCU SCH (21:00)
[2018-06-11] MEDS: PANTOPRAZOLE SODIUM IV 40 MG VIAL IV SCH (21:18)
[2018-06-12] MEDS: KCL 20MEQ/0.45% NS 1,000 ML IVS PRN (06:13)
[2018-06-12] MEDS: INSULIN LISPRO 100 UNITS/ML PEN SUBCU SCH ×4 (07:37→21:25)
[2018-06-12] MEDS ORDERED: SODIUM CHLORIDE 0.9% (FLUSH) 10 ML SYG IV ONE (07:44)
[2018-06-12] MEDS ORDERED: INSULIN DETEMIR 100 UNITS/ML PEN SUBCU ONE ×2 (09:33→21:20)
--- NOTE | 2018-06-12 14:55 | US ---
EXAM DESCRIPTION: Venous,Lower Extremity RT: ULTRASOUND. CLINICAL HISTORY: RLE edema COMPARISON: None Available. TECHNIQUE: Leon-scale and doppler sonographic evaluation of the deep venous system of the right lower extremity. FINDINGS: Doppler evaluation shows normal color flow and normal phasicity and augmentation of the right common femoral vein, femoral vein, popliteal vein, greater saphenous vein, peroneal, and posterior tibial vein. The right lower extremity deep veins showed normal occlusion with transducer pressure. Leon-scale survey showed no echogenic thrombus within these veins. IMPRESSION: 1. Duplex ultrasound evaluation of the right lower extremity deep venous system showing no evidence of thrombosis. Electronically signed by: Lorne Solomon MD 06/12/2018 2:54 PM CDT
--- NOTE | 2018-06-12 18:58 | PN ---
DATE: 06/12/18 SUPERVISING PHYSICIAN: Derick Jurado M.D. SUBJECTIVE: The patient today is doing fairly well. She actually got up to a chair. She did work with Physical Therapy but is significantly weakened. Blood sugars remain elevated and still trying to get a dose of long-acting that will community association manager her blood sugars better. OBJECTIVE: VITAL SIGNS: Temperature 98.2, pulse 82, blood pressure 137/70, respirations 18, satting 96% on room air. GENERAL: The patient is alert. She is in no acute distress. CHEST: Lungs are clear to auscultation. HEART: Regular rate and rhythm. ABDOMEN: Soft, non-tender. Positive bowel sounds. EXTREMITIES: Without any clubbing, cyanosis or edema. NEUROLOGIC: She is alert and oriented times three. LABORATORY: White count is down to 4,200, hemoglobin 9.1, hematocrit 27.9, platelet count 187,000. Differential shows to be without a left shift today. RBC indices indicate a normocytic/normochromic anemia. Chemistries showed sodium 134, potassium 5.3, anion gap 12.3, creatinine 0.4. Blood sugars are ranging between 219 and 283, calcium 8.9. Hemoglobin A1c was 9.4. RADIOLOGY: Lower Doppler ultrasound of the leg for DVT on the right per radiology interpretation showed no evidence of thrombus. ASSESSMENT: 1. Hyperglycemia in a type 2 diabetic utilizing insulin with poor control as evidenced by an A1c of 9.4 presenting with diabetic ketoacidosis responding well to DKA treatment requiring ongoing further management of insulin to stabilize blood sugars. 2. Nausea and vomiting on admission resulting in DKA state likely from a viral gastroenteritis and some possible gastroparesis now resolved. 3. History of recent fracture of the left humerus on 03/30/18 as well as shoulder being a nonsurgical candidate having been followed by and treated by Dr. oPwers as an outpatient and with Physical Therapy. 4. Right lower extremity edema with no evidence of deep venous thrombosis on ultrasound studies. 5. Hypothyroidism on supplementation. 6. Hypertension but well controlled. 7. Electrolyte imbalance to include a mild hyponatremia and hyperkalemia likely due to ongoing fluid management now being saline locked with further monitoring required. PLAN: She is shown to be significantly weakened. Will have her work with Physical Therapy and make sure that she is safe to go home. Certainly if she needs, more likely she will need home health. Will wait for that qualification. Will also need to further monitor her blood sugars to ensure her blood sugars are staying stable as we are having to modify some of her long- acting dosing with Levemir as she is not able to bring up her normal insulin regimen. I did saline lock her as she was showing mild hyperkalemia. Will repeat labs in the morning. Will anticipate discharge tomorrow once arrangements are made with home health and the patient is showing more control of her blood sugars. She is on continued 1800 calorie diet and a.c. and h.s. sliding scale. Until discharge will continue to monitor and treat as needed. [facility][id number] [facility]
[2018-06-12] MEDS: PANTOPRAZOLE SODIUM IV 40 MG VIAL IV SCH (20:43)
[2018-06-12] MEDS ORDERED: ENOXAPARIN SODIUM 80 MG/0.8 ML SYG SUBCU SCH (21:00)
[2018-06-12] MEDS ORDERED: ENOXAPARIN SODIUM 40 MG/0.4 ML SYG SUBCU SCH (21:00)
[2018-06-13] MEDS: INSULIN LISPRO 100 UNITS/ML PEN SUBCU SCH ×2 (07:56→12:15)
[2018-06-13 13:45] VITALS: BP 106/66; TEMP 95.6; O2SAT 99
--- NOTE | 2018-06-13 20:24 | DS ---
SUPERVISING PHYSICIAN: Derick Jurado M.D. DISCHARGE DIAGNOSIS: 1. Hyperglycemia in a type 2 diabetic utilizing insulin with poor control as evidenced by an A1c of 9.4. She presented with diabetic ketoacidosis responding well to DKA treatment requiring ongoing management of insulin to stabilize blood sugars. 2. Nausea and vomiting on admission that resulted in DKA state likely from a viral gastroenteritis and possible gastroparesis, now resolved. 3. History of recent fracture of the left humerus on 03/30/18. She was a nonsurgical candidate. She is followed and treated by Dr. Powers as an outpatient with Physical Therapy. 4. Right lower extremity edema with no evidence of deep venous thrombosis on ultrasound. 5. Hypothyroidism on supplementation. 6. Hypertension but well controlled. 7. Electrolyte imbalance to include mild hyponatremia and hyperkalemia most likely due to her gastroenteritis that is now resolved. HISTORY OF PRESENT ILLNESS: This is an 83 year-old female patient who is a type 2 diabetic that is on insulin therapy. She is a patient of Dr. Anais Ware. She came to our E. R. on date of admission with nausea and vomiting and elevated blood sugars. Her blood sugars were as high as 499 that morning. She had some nausea for several days prior to her coming to the Emergency Room, but had no diarrhea. She has had a previous episode of DKA this past February. In the Emergency Room, her laboratory studies showed that her blood sugar was 512. Blood gas initially showed a pH of 7.1 with a base excess of -14.7 and bicarb 12.1. She was initiated on DKA treatment protocol. After 2 liters of fluids her blood sugar had corrected to 301 and repeat blood gas analysis showed her pH had gone up to 7.26. The patient was admitted for management of DKA as well as her gastroenteritis. HOSPITAL COURSE: Over the course of the next few days, her insulin drip was discontinued. It showed that she had no serum ketones. She was advanced to an oral diet. She also had an ultrasound of her right lower leg to rule out any kind of DVT. It was negative. She was changed to Levemir long-acting insulin. She does take Glargine insulin normally. Her routine insulin was not initiated. She was also on a sliding scale insulin with a.c. and h.s. blood sugar checks. WBCs started at 10.9 and went down to 4.2 with hemoglobin of 10.7 , hematocrit 33.8 on admission and her hemoglobin yesterday was 9.1 and 27.9. Blood sugars did range from a one time low of 58 but most of the time they were in the 108 to 255 in the last 48 hours. Electrolytes stabilized other than her chloride was slightly low at 100. Carbon dioxide normalized to 30. Hemoglobin A1c was 9.4. She had no further complaints of nausea and vomiting. At this point she will be discharged home in stable condition. DISCHARGE PLAN: The patient will be discharged home in stable condition. She will have [facility] as well as she will need physical therapy for a previous humerus fracture that she was having as an outpatient at [facility] Physical Therapy Department. She is being followed by Dr. Powers for a nonsurgical injury to her right shoulder and right humerus. She has a close followup with her primary care physician, Dr. Anais Ware, on 05/15/18 at 9:40 AM. She is to continue her diabetic diet as well as increase her activity as tolerated as per Physical Therapy which will be provided by [facility]. I believe her blood sugars were out of range due to her gastroparesis. Those symptoms have resolved and she will followup closely with Dr. Ware if there are any changes to her medications that are needed. Otherwise she can return to the hospital or followup with Dr. Ware for any other problems or complications. If she has any other problems or complications with her right arm, she is to followup with Dr. Powers. DISCHARGE MEDICATIONS: 1. Synthroid. 2. Glargine insulin. 3. Pravastatin. 4. Losartan. 5. NovoLog short acting insulin. #[id number] [facility]
== END 2018-06-13 16:00 | disposition home health service (06) | DRG 638 ==
LOC: ER 12:32 → MS 16:33
PROVIDERS: ADMIT Nurse Practitioner Family; ATTEND Nurse Practitioner Acute Care
DX: E11.10 Type 2 diabetes mellitus with ketoacidosis without coma (principal); E87.1 Hypo-osmolality and hyponatremia; Z79.4 Long term (current) use of insulin; A08.4 Viral intestinal infection, unspecified; E11.43 Type 2 diabetes mellitus with diabetic autonomic (poly)neuropathy; K31.84 Gastroparesis; R60.9 Edema, unspecified; E03.9 Hypothyroidism, unspecified; I10 Essential (primary) hypertension; E87.5 Hyperkalemia; Z88.5 Allergy status to narcotic agent

== ENCOUNTER → 2018-06-15 | Outpatient (CLI) | payer OTHER ==
--- NOTE | 2018-06-15 10:24 | RAD ---
EXAM DESCRIPTION: Radiographs of the left Shoulder: CLINICAL HISTORY: CLOSED FX OF HUMERUS COMPARISON: None TECHNIQUE: AP internal external rotation images. Left shoulder FINDINGS: Previous fracture and deformity of the surgical neck of the left humerus is again seen.. Minimally decreased bone density. AC joint minimal arthrosis. Glenohumeral joint narrowed due to deformity of the humeral head. No abnormal radiodense objects in the soft tissues or joint spaces. IMPRESSION: Old fracture of the left humeral head at the surgical neck with deformity and abnormal angulation of the femoral head. Narrowing of the glenohumeral joint. Minimal decrease in bone density. No new fracture. Electronically signed by: Lorne Solomon MD 06/15/2018 10:23 AM CDT
== END ==
LOC: RAD 08:23
PROVIDERS: ATTEND Orthopaedic Surgery
DX: S42.302D Unspecified fracture of shaft of humerus, left arm, subsequent encounter for fracture with routine healing (principal)

== ENCOUNTER 2018-08-14 16:12 | Emergency (ER) | payer OTHER ==
[2018-08-14] MEDS ORDERED: ONDANSETRON INJ 4 MG/2 ML VIAL IV ONE ×2 (16:32→22:25)
[2018-08-14 17:00] VITALS: TEMP 96.7
[2018-08-14] MEDS ORDERED: INSULIN, REG.(HUMAN) 100 U/ML VIAL SUBCU ONE (17:25)
[2018-08-14] MEDS ORDERED: KCL 20 MEQ/NS 1,000 ML IVS PRN (17:26)
[2018-08-14] MEDS ORDERED: INSULIN, REG.(HUMAN) 250 UNITS in SODIUM CHL 0.9% 250ML (AVIVA) 247.5 ML IVPB SCH ×2 (17:30)
[2018-08-14] MEDS ORDERED: SODIUM CHL 0.9% 250ML (AVIVA) 250 ML IVPB ONE (18:09)
[2018-08-14] MEDS ORDERED: INSULIN, REG.(HUMAN) 100 U/ML VIAL ONE (18:09)
--- NOTE | 2018-08-14 18:27 | ED.PDOC ---
History of Present Illness - General Chief Complaint: Diabetic Complaint Time Seen by Provider: 08/14/18 16:35 Source: patient, family Exam Limitations: no limitations - History of Present Illness Initial Comments: Patient presents with hyperglycemia. She is a non-compliant insulin dependent diabetic. Her daughter says that she is not sure if the patient has been taking her insulin correctly for about three days. The patient is unsure as well. She has been hospitalized for DKA coma in the past. She is tired today but otherwise has no complaints. Timing/Duration: unsure Severity: moderate Improving Factors: nothing Worsening Factors: nothing Allergies/Adverse Reactions: Allergies Codeine Allergy (Verified 06/10/18 17:52) Meperidine [From Demerol HCl] Allergy (Verified 06/10/18 17:53) Home Medications: Ambulatory Orders Human Insulin Aspart [Novolog] 0 units SC ACHS PRN 06/10/18 Insulin Glargine [Basaglar Kwikpen] 10 unit SC DAILY 06/10/18 Levothyroxine Sodium [Synthroid] 100 mcg PO ACBK 06/10/18 Losartan Potassium 50 mg PO DAILY 06/10/18 Pravastatin Sodium 20 mg PO DAILY 06/10/18 Review of Systems - Review of Systems Constitutional: States: weakness EENTM: States: no symptoms reported Respiratory: States: no symptoms reported Cardiology: States: no symptoms reported Gastrointestinal/Abdominal: States: no symptoms reported Genitourinary: States: no symptoms reported Musculoskeletal: States: no symptoms reported Neurological: States: no symptoms reported Endocrine: States: see HPI Hematologic/Lymphatic: States: no symptoms reported Past Medical History (General) - Patient Medical History Hx Seizures: No Hx Stroke: - possible, per daughter Hx Dementia: No Hx Asthma: No Hx of COPD: No Hx Cardiac Disorders: No Hx Congestive Heart Failure: No Hx Pacemaker: No Hx Hypertension: Yes Hx Thyroid Disease: Yes Hx Diabetes: Yes - tx for DKA in past Hx Gastroesophageal Reflux: No Hx Renal Disease: No Hx Cancer: No Hx of HIV: No Hx Hepatitis C: No Hx MRSA: No - Vaccination History Hx Tetanus, Diphtheria Vaccination: No Hx Influenza Vaccination: No Hx Pneumococcal Vaccination: No - Social History Hx Tobacco Use: No Hx Chewing Tobacco Use: No Hx Alcohol Use: No Hx Substance Use: No Hx Substance Use Treatment: No Hx Depression: No Hx Physical Abuse: No Hx Emotional Abuse: No Hx Suspected Abuse: No - Female History Patient : No Family Medical History - Family History Mother Family History: Unknown Living Status: Physical Exam - Physical Exam General Appearance: Alert Eye Exam: bilateral normal Ears, Nose, Throat: normal ENT inspection Neck: non-tender, full range of motion, supple Respiratory: lungs clear, normal breath sounds Cardiovascular/Chest: normal peripheral pulses, regular rate, rhythm, no edema Gastrointestinal/Abdominal: normal bowel sounds, non tender, soft Extremity: normal range of motion, non-tender, normal inspection Neurologic: ab initio etl developer II-XII nml as tested, no motor/sensory deficits, alert, normal mood/affect, oriented x 3 Skin Exam: normal color Lymphatic: no adenopathy Progress - Progress Progress: 08/15/18 03:30 Laboratory Tests 08/14/18 08/14/18 08/14/18 16:36 16:36 16:40 WBC 11.3 H RBC 3.38 L Hgb 10.4 L Hct 32.4 L MCV 95.9 MCH 30.7 MCHC 32.2 L RDW 13.0 Plt Count 309 MPV 8.3 Absolute Neuts (auto) Not Reportable Absolute Lymphs (auto) Not Reportable Absolute Monos (auto) Not Reportable Absolute Eos (auto) Not Reportable Neutrophils % Not Reportable Neutrophils % (Manual) 87.0 H Lymphocytes % Not Reportable Lymphocytes % (Manual) 6.0 Monocytes % Not Reportable Monocytes % (Manual) 5.0 Eosinophils % Not Reportable Basophils % Not Reportable Band Neutrophils 1.0 Eosinophils 1.0 Platelet Estimate Normal Normal RBC Morphology 1+aniso Sodium 134 L Potassium 4.8 Chloride 99 L Carbon Dioxide 13 L* Anion Gap 26.8 H BUN 30 H Creatinine 1.53 H BUN/Creatinine Ratio 19.6 POC Glucose Random Glucose 505 H* Serum Osmolality 297.0 H Calcium 9.9 Total Bilirubin 1.6 H AST 13 ALT 11 Alkaline Phosphatase 111 Serum Total Protein 7.0 Albumin 3.6 Globulin 3.4 Albumin/Globulin Ratio 1.1 Urine Acetest Large Serum Ketones 08/14/18 08/14/18 08/15/18 20:26 22:15 00:07 WBC RBC Hgb Hct MCV MCH MCHC RDW Plt Count MPV Absolute Neuts (auto) Absolute Lymphs (auto) Absolute Monos (auto) Absolute Eos (auto) Neutrophils % Neutrophils % (Manual) Lymphocytes % Lymphocytes % (Manual) Monocytes % Monocytes % (Manual) Eosinophils % Basophils % Band Neutrophils Eosinophils Platelet Estimate Normal RBC Morphology Sodium 136 139 140 Potassium 4.7 4.5 4.4 Chloride 105 108 108 Carbon Dioxide 9 L* D 11 L* 19 L D Anion Gap 26.7 H 24.5 H 17.4 BUN 33 H 32 H 33 H Creatinine 1.62 H 1.56 H 1.56 H BUN/Creatinine Ratio 20.4 H 20.5 H 21.2 H POC Glucose Random Glucose 497 H* 306 H D 177 H D Serum Osmolality 301.1 H 296.0 H 291.0 Calcium 9.3 9.3 9.9 Total Bilirubin AST ALT Alkaline Phosphatase Serum Total Protein Albumin Globulin Albumin/Globulin Ratio Urine Acetest Serum Ketones 08/15/18 08/15/18 01:13 02:34 WBC RBC Hgb Hct MCV MCH MCHC RDW Plt Count MPV Absolute Neuts (auto) Absolute Lymphs (auto) Absolute Monos (auto) Absolute Eos (auto) Neutrophils % Neutrophils % (Manual) Lymphocytes % Lymphocytes % (Manual) Monocytes % Monocytes % (Manual) Eosinophils % Basophils % Band Neutrophils Eosinophils Platelet Estimate Normal RBC Morphology Sodium Potassium Chloride Carbon Dioxide Anion Gap BUN Creatinine BUN/Creatinine Ratio POC Glucose 197 H Random Glucose Serum Osmolality Calcium Total Bilirubin AST ALT Alkaline Phosphatase Serum Total Protein Albumin Globulin Albumin/Globulin Ratio Urine Acetest Serum Ketones Moderate Initial blood glucose 505 with anion gap of 26.8 and potassium 4.8. She was given a bolus of Normal human insulin of 8 units then 8 units per hour. NS one liter with 20 meq KCl at 500 ml/hr given twice. One oral tablet of KCl 20 meq given. Patient achieved a blood glucose of 177 and the anion gap was 17.4. Before D% was started, her FSBG went to 197 so it was witheld. Patient was alert and oriented x 3 and her lethargy had resolved. She agreed to start taking her home insulin according to her sliding scale starting this morning. Follow up with her pcp was recommended. E.R. warnings given. Care instructions given. Questions were elicited and answered. The patient voiced understanding and agreement with the plan. Departure - Departure Clinical Impression: Diabetes mellitus with ketoacidosis Disposition: Discharge to Home or Self Care Condition: Good Departure Forms: ED Discharge - Pt. Copy, Patient Portal Self Enrollment Instructions: DI for Diabetes Type 2 Diet: diabetic diet, other - Increase fluids. Activity: increase activity as tolerated Referrals: Anais Ware DO [Primary Care Provider] - 1-2 Weeks Home Medications: Ambulatory Orders Human Insulin Aspart [Novolog] 0 units SC ACHS PRN 06/10/18 Insulin Glargine [Basaglar Kwikpen] 10 unit SC DAILY 06/10/18 Levothyroxine Sodium [Synthroid] 100 mcg PO ACBK 06/10/18 Losartan Potassium 50 mg PO DAILY 06/10/18 Pravastatin Sodium 20 mg PO DAILY 06/10/18 Additional Instructions: Take your insulin as prescribed. See Dr. Ware this week for a possible change in your insulin regiment or for once a day insulin. Return to the E.R. for worsening symptoms.
[2018-08-14 19:05] VITALS: O2SAT 99
[2018-08-14] MEDS ORDERED: SODIUM CHLORIDE 0.9% 1000ML 1,000 ML IVS ONE (20:58)
[2018-08-14] MEDS ORDERED: POTASSIUM CHLORIDE 20 MEQ TAB PO ONE (21:25)
[2018-08-14] MEDS ORDERED: ONDANSETRON INJ 4 MG/2 ML VIAL ONE (22:26)
[2018-08-15] MEDS ORDERED: KCL 20 MEQ/NS 1,000 ML IVS PRN (00:07)
[2018-08-15] MEDS ORDERED: DEX 5% W/NACL 0.9% 1000ML 1,000 ML IVS PRN (02:35)
[2018-08-15 03:42] VITALS: BP 100/45
== END 2018-08-15 03:55 | disposition home or self-care (01) ==
LOC: ER 16:12
DX: E11.10 Type 2 diabetes mellitus with ketoacidosis without coma (principal); E07.9 Disorder of thyroid, unspecified; I10 Essential (primary) hypertension; Z79.4 Long term (current) use of insulin; Z79.899 Other long term (current) drug therapy; Z88.8 Allergy status to other drugs, medicaments and biological substances; Z88.5 Allergy status to narcotic agent
CPT/HCPCS: 36415; 80048; 80053; 81002; 82009; 82948; 85025; J2405; J3480; J7030

== ENCOUNTER → 2018-08-18 | Outpatient (CLI) | payer OTHER | LOC: SOLHH 14:47 | PROVIDERS: ATTEND Family Medicine | DX: R68.89 Other general symptoms and signs (principal); R79.89 Other specified abnormal findings of blood chemistry ==

== ENCOUNTER → 2018-08-19 | Outpatient (CLI) | payer OTHER | LOC: SOLHH 13:46 | PROVIDERS: ATTEND Family Medicine | DX: N39.0 Urinary tract infection, site not specified (principal) ==